=== PATIENT | female | born 1960 ===

== ENCOUNTER 2020-09-26 10:00 | Inpatient (IN) | payer OTHER ==
[~2020-09-26] VITALS: Ht 162.6 cm; Wt 94.3 kg
[2020-09-26] MEDS ORDERED: CENTRUM ADULTS1 EACH PO (13:13)
[2020-09-26] MEDS ORDERED: PEPCID AC20 MG PO (13:13)
[2020-09-26] MEDS ORDERED: DIOVAN160 M1 PO (13:13)
[2020-09-26] MEDS ORDERED: OMEPRAZOLE20 MG PO (13:14)
[2020-09-26] MEDS ORDERED: VITAMIN D PO (13:14)
[2020-10-03] MEDS ORDERED: VITAMIN D3250 MC1 (10:17)
== END 2020-10-06 18:22 | disposition home or self-care (01) | DRG 331 ==
LOC: O/R 10-03 05:35 → SURH 10-03 18:40 → SURG 10-03 18:43
PROVIDERS: ADMIT Colon & Rectal Surgery; ATTEND Colon & Rectal Surgery
PROC: 0DBP4ZZ Excision of Rectum, Percutaneous Endoscopic Approach (ICD-10-PCS; 2020-10-03)
PROC: 4A12X4Z Monitoring of Cardiac Electrical Activity, External Approach (ICD-10-PCS; 2020-10-03)
PROC: 0DBN4ZZ Excision of Sigmoid Colon, Percutaneous Endoscopic Approach (ICD-10-PCS; principal; 2020-10-03 06:15)
DX: K57.32 Diverticulitis of large intestine without perforation or abscess without bleeding (principal); G47.33 Obstructive sleep apnea (adult) (pediatric); E66.9 Obesity, unspecified; I11.9 Hypertensive heart disease without heart failure